=== PATIENT | male | born 1990 | race Caucasian/White ===

== ENCOUNTER 2017-05-09 04:07 | Emergency (ER) ==
[2017-05-09 04:27] VITALS: BP 131/85; TEMP 98.1; BMI 24.4
[2017-05-09] MEDS ORDERED: ANCEF IM STA (04:45)
--- NOTE | 2017-05-09 04:49 | ED.PDOC ---
General ED Provider: Dr. FELIPE MRACELINO Chief Complaint: Extremity Swelling/Pain Stated Complaint: Patient is a 27 year old male who comes to the ER with right foot pain and redness for the past few days. States that he pulled some ticks from his skin. Had similar symtoms last year and let it got before he got it checked out. Time Seen by Physician: 04:47 Mode of Arrival: Walk-In Information Source: Patient Exam Limitations: No limitations [facility] Nursing and Triage Documentation Reviewed and Agree: Yes Reviewed sepsis parameters & appropriate labs ordered?: No System Inflammatory Response Syndrome: Not Applicable Sepsis Protocol: For patient's 13 years and over: Temp is 96.8 and below OR 101 and greater Pulse >90 BPM Resp >20/minute Acutely Altered Mental Status Are patient's symptoms suggestive of a new infection, such as: -Pneumonia -Skin, Soft Tissue -Endocarditis -UTI -Bone, Joint Infection -Implantable Device -Acute Abdominal Infection -Wound Infection -Meningitis -Blood Stream Catheter Infection -Unknown System Inflammatory Response Syndrome: Not Applicable Skin Complaint Exam - Skin/Soft Tissue Complaint/Exam Onset/Duration: 1 days Timing: Constant Initial Severity: Mild Current Severity: Moderate Location: Left foot and ankle. Character: Reports: Redness (measuring 6 x 4 cm with mild erythema. Not raised.) , Painful Aggravating: Reports: None Alleviating: Reports: None Associated Signs and Symptoms: Reports: Tenderness, Red streaks. Denies: Fever , Chills, Itching, Drainage, Bruising, Joint swelling Related History: Reports: Insect bite/sting Recent Exposure to Others w/Similar Symptoms: No Skin Findings: Present: Erythema Joint Tenderness Present: No Differential Diagnoses: Cellulitis, Tick-Borne Illness Review of Systems - Review Of Systems Constitutional: Reports: No symptoms Eyes: Reports: No symptoms Ears, Nose, Mouth, Throat: Reports: No symptoms Respiratory: Reports: No symptoms Cardiac: Reports: No symptoms GI: Reports: No symptoms : Reports: No symptoms Musculoskeletal: Reports: Muscle pain Skin: Reports: Rash (left foot and ankle ) Neurological: Reports: No symptoms Endocrine: Reports: No symptoms Hematologic/Lymphatic: Reports: No symptoms All Other Systems: Reviewed and Negative Past Medical History - Past Medical History Previously Healthy: Yes Endocrine: Reports: None Cardiovascular: Reports: None Respiratory: Reports: None Hematological: Reports: None Gastrointestinal: Reports: None Genitourinary: Reports: None Neuro/Psych: Reports: None Musculoskeletal: Reports: None Cancer: Reports: None - Surgical History General Surgical History: Reports: None - Family History Family History: Reports: Unknown - Social History Smoking Status: Never smoker Hx Substance Use: No Alcohol Screening: None - Immunizations Tetanus Shot up to Date: No Physical Exam - Physical Exam Appearance: Well-appearing, Well-nourished Pain Distress: Mild Eyes: JACQUELINE, EOMI, Conjunctiva clear Respiratory: Airway patent, Breath sounds clear, Breath sounds equal, Respirations nonlabored Cardiovascular: RRR, Pulses normal, No rub, No murmur GI/: Soft, Nontender, No masses, Bowel sounds normal, No Organomegaly Skin: Warm, Dry Neurological: Sensation intact, Alert, Oriented Psychiatric: Anxious Critical Care Note - Critical Care Note Total Time (mins): 0 Course - Course Orders, Labs, Meds: Orders Category Date Time Status Cefazolin Sodium [Ancef] MEDS 05/09/17 04:45 Discontinued 1 gm IM ONCE STA Doxycycline Hyclate MEDS 05/09/17 04:50 Discontinued 100 mg .ROUTE .STK-MED ONE Doxycycline Hyclate MEDS 05/09/17 05:00 Discontinued 100 mg PO Q12HR Ibuprofen [Motrin] MEDS 05/09/17 05:04 Discontinued 600 mg PO ONCE STA Medications Discontinued Medications Generic Name Dose Route Start Last Admin Trade Name Freq PRN Reason Stop Dose Admin Cefazolin Sodium 1 gm 05/09/17 04:45 05/09/17 04:52 Ancef IM 05/09/17 04:46 1 gm ONCE STA Administration Doxycycline Hyclate 100 mg 05/09/17 05:00 05/09/17 04:53 Doxycycline Hyclate PO 100 mg Q12HR MARÍA Administration Ibuprofen 600 mg 05/09/17 05:04 05/09/17 05:07 Motrin PO 05/09/17 05:05 600 mg ONCE STA Administration Vital Signs: Temp Pulse Resp BP Pulse Ox 05/09/17 04:08 98.1 F 79 20 131/85 98 Departure - Departure Time of Disposition: 05:20 Disposition: HOME SELF-CARE Discharge Problem: Cellulitis of foot Tick bite of left lower leg with infection Qualifiers: Encounter type: initial encounter Qualified Code(s): S80.862A - Insect bite ( nonvenomous), left lower leg, initial encounter Instructions: Cellulitis (ED), Tick Bite (ED) Condition: Stable Pt referred to PMD for follow-up: Yes IPMP verified?: No Additional Instructions: Take Medication as prescribed Follow up with PCP in 2-3 days Return if worse or cannot take medications. Prescriptions: Cephalexin [Keflex] 500 mg PO Q8HR #30 capsule Doxycycline Monohydrate 100 mg PO Q12HR #20 capsule Ibuprofen [Motrin] 600 mg PO Q6H PRN #30 tablet PRN Reason: Analgesia Allergies/Adverse Reactions: Allergies No Known Allergies Allergy (Verified 05/09/17 04:19) Home Medications: Ambulatory Orders Cephalexin [Keflex] 500 mg PO Q8HR #30 capsule 05/09/17 Doxycycline Monohydrate 100 mg PO Q12HR #20 capsule 05/09/17 Ibuprofen [Motrin] 600 mg PO Q6H PRN #30 tablet 05/09/17 Disposition Discussed With: Patient, Family
[2017-05-09] MEDS ORDERED: DOXYCYCLINE HYCLATE ONE (04:50)
[2017-05-09] MEDS ORDERED: DOXYCYCLINE HYCLATE PO SCH (05:00)
[2017-05-09] MEDS ORDERED: MOTRIN PO STA (05:04)
== END 2017-05-09 05:25 | disposition home or self-care (01) ==
LOC: ED 04:07
DX: S80.862A Insect bite (nonvenomous), left lower leg, initial encounter (principal); L03.116 Cellulitis of left lower limb; W57.XXXA Bitten or stung by nonvenomous insect and other nonvenomous arthropods, initial encounter
CPT/HCPCS: 96372; 99282

== ENCOUNTER 2017-05-29 11:07 | Outpatient (CLI) ==
--- NOTE | 2017-05-29 12:28 | DI ---
EXAM: Chest two view, frontal and lateral views. HISTORY: Acute upper respiratory infection. COMPARISON: 04/28/2015. FINDINGS: The heart size is normal. There is no pulmonary vascular congestion. The lungs are clear . No pleural effusion or pneumothorax is seen. No acute osseous abnormality identified. Suggestion of sclerosis in the right T7 pedicle which may be artifactual although appears similar to prior exam ination. Since the prior study, there has been no significant interval change. IMPRESSION: No acute cardiopulmonary process.
== END 2017-05-29 11:08 | disposition home or self-care (01) ==
LOC: RAD 11:07
PROVIDERS: ATTEND Emergency Medicine
DX: J06.9 Acute upper respiratory infection, unspecified (principal)